=== PATIENT | male | born 2000 | race Caucasian/White ===

== ENCOUNTER 2021-03-05 20:41 | Emergency (ER) | payer OTHER, BC ==
[~2021-03-05] VITALS: Ht 208.3 cm; Wt 111.1 kg
[~2021-03-05 20:41] MED LIST: CYCL10 PO
[2021-03-07 07:09] LABS: HCV ANTIBODY <0.1 (0.0-0.9); HIV SCREEN 4TH GENERATION WRFX Non Reactive (Non Reactive)
== END 2021-03-05 21:50 | disposition home or self-care (01) ==
LOC: ER 20:41
PROVIDERS: Physician Assistant
DX: Z77.21 Contact with and (suspected) exposure to potentially hazardous body fluids (principal); Z79.899 Other long term (current) drug therapy
CPT/HCPCS: 36415; 84460; 86317; 86803; 87389; 99283

== ENCOUNTER → 2021-09-17 | Outpatient (CLI) | payer OTHER, BC ==
[2021-09-18 09:09] LABS: HCV ANTIBODY <0.1 (0.0-0.9)
[2021-09-19 01:09] LABS: HIV AB/P24 AG SCREEN Non Reactive (Non Reactive)
== END | disposition home or self-care (01) ==
LOC: LAB SHORT 11:14
PROVIDERS: General Practice
DX: Z20.9 Contact with and (suspected) exposure to unspecified communicable disease (principal)
CPT/HCPCS: 84460; 86317; 86803; 87389